=== PATIENT | female | born 1970 | race Caucasian/White ===

== ENCOUNTER 2019-08-16 05:38 | Emergency (ER) | payer BC ==
[~2019-08-16] VITALS: Ht 172.7 cm; Wt 65.3 kg
[~2019-08-16 05:38] MED LIST: CLINDAMYCIN; CLINDAMYCIN 2% VAGINAL CREAM; CLONAZEPAM 1MG TABLETS; ESCITALOPRAM 10MG TABLETS; SYNTHROID 50 MCG TABLET
--- NOTE | 2019-08-16 05:50 | NUR ---
PT BIBFAMILY C/O MIGRAINE, PT STATES I ONLY NEED IMITREX AND REGLAN. PT AXO4. RESPIRATIONS EVEN AND UNLABORED.
[2019-08-16] MEDS ORDERED: PROCHLORPERAZINE MALEATE SUPP 25 MG/SUPP.RECT SUPP.RECT ONE (06:14)
[2019-08-16] MEDS ORDERED: SUMATRIPTAN SUCCINATE 6 MG/0.5 ML VIAL SQ ONE ×2 (06:14→06:30)
[2019-08-16] MEDS ORDERED: PROCHLORPERAZINE MALEATE SUPP 25 MG/SUPP.RECT SUPP.RECT RC ONE (06:30)
[2019-08-16] MEDS ORDERED: METOCLOPRAMIDE HCL 10 MG/2 ML VIAL IV ONE (06:30)
--- NOTE | 2019-08-16 07:13 | NUR ---
Patient discharged to home in stable condition. Written and verbal after care instructions given. Patient verbalizes understanding of instruction.
[2019-08-16 07:14] VITALS: BP 144/70
== END 2019-08-16 07:14 | disposition home or self-care (01) ==
LOC: ER 05:39
DX: G43.909 Migraine, unspecified, not intractable, without status migrainosus (principal); Z88.0 Allergy status to penicillin; Z79.899 Other long term (current) drug therapy
CPT/HCPCS: 96372; 99283; A4216; J3030; J7040